=== PATIENT | female | born 1975 | race Caucasian/White ===

== ENCOUNTER 2018-03-24 11:58 | Emergency (ER) | payer MEDICAID ==
[2018-03-24] MEDS: ACETAMINOPHEN 325 MG TAB PO (13:13)
[2018-03-24 13:18] LABS: URINE BLOOD (Dip) POC 1+ (NEGATIVE); URINE GLUCOSE (Dip) POC Negative (NEGATIVE); URINE KETONES (Dip) POC Negative (NEGATIVE); URINE LEUKOCYTE EST (Dip) POC 1+ (NEGATIVE); URINE NITRITE (Dip) POC Negative (NEGATIVE); URINE TOTAL PROTEIN POC Negative (NEGATIVE)
== END 2018-03-24 14:24 | disposition home or self-care (01) ==
LOC: FTE 11:58
DX: R51 Headache (principal)
CPT/HCPCS: 70450; 81003; 81025; 99284-25